=== PATIENT | male | born 1985 | race Two or more races ===

== ENCOUNTER 2024-04-26 05:20 | Emergency (ER) | payer BC, SELFPAY ==
[2024-04-26 05:21] VITALS: BMI 24.1
[2024-04-26 05:43] VITALS: BP 133/77; PULSE 88; RESP 18; TEMP 36.7; O2SAT 97
--- NOTE | 2024-04-26 05:51 | XR_ITS ---
Examination: CT brain head without contrast. 2-D sagittal coronal reconstructions Date and time of exam:April 26, 2024 at 0719 hrs. Indications: Onset headaches today CTDI: vol (mGy):50.1 DLP: (mGycm):1019 Technique: Multiple CT axial sections of the brain have been obtained, 5 mm slice thickness. Contrast has not been administered. 2-D sagittal, coronal reconstructions have been obtained Low dose protocols were performed. One or more of the following dose reduction techniques were used; automated exposure control, adjustment of the mA and/or KV according to patient size, use of iterative reconstruction technique. Findings: No significant ventricular enlargement. Intra-axial or extra-axial hemorrhage density is not seen. No mass effect or midline shift Basal cisterns are not remarkable. Fourth ventricle is midline. Cranial vault intact. Impression: Negative for acute hemorrhage, mass effect or midline shift Significant ethmoid frontal maxillary antral and sphenoid sinusitis Acute right maxillary sinusitis
--- NOTE | 2024-04-26 05:52 | PD.EDRME ---
Rapid Medical Screening Exam RME Arrival date/time: 04/26/24 05:20 39-year-old male past medical history of migraines presents emergency department complaining of headache that starts behind right ear and travels towards right eye that is been ongoing for several days. Chief Complaint: Headache Vital signs: Vital Signs Temperature 98.1 F 04/26/24 05:43 Pulse Rate 88 04/26/24 05:43 Respiratory Rate 18 04/26/24 05:43 Blood Pressure 133/77 H 04/26/24 05:43 Pulse Oximetry (%) 97 04/26/24 05:43 Oxygen Delivery Method Room Air 04/26/24 05:43 Vital signs reviewed by provider: Yes
[2024-04-26] MEDS: DiphenhydrAMINE 25 MG CAPSULE PO (05:58)
[2024-04-26] MEDS: HYDROcodone/APAP 5/325 TABLET 1 TAB PO (05:58)
[2024-04-26] MEDS: METOCLOPRAMIDE 5 MG TABLET 10 MG PO (05:59)
--- NOTE | 2024-04-26 07:59 | EDNOTE_ITS ---
ED Headache RME/HPI General Chief Complaint: Headache Stated Complaint: HEADACHE Time Seen by Provider: 04/26/24 06:14 Arrival date/time: 04/26/24 05:20 39-year-old male presents emergency department complaints of facial pain and headache patient report symptoms ongoing for last couple of days patient reports no fever nausea or vomiting Limitations: no limitations RME / HPI RME / HPI Narrative: 04/26/24 05:20 39-year-old male past medical history of migraines presents emergency department complaining of headache that starts behind right ear and travels towards right eye that is been ongoing for several days. Related Data Previous Rx's ?Medication ?Instructions ?Recorded amoxicillin 875 mg-potassium 1 tab PO BID 10 days #20 tabs 04/26/24 clavulanate 125 mg tablet hydrocodone 5 mg-acetaminophen 325 1 tab PO BID PRN pain #10 tabs 04/26/24 mg tablet Allergies Allergy/AdvReac Type Severity Reaction Status Date / Time ibuprofen [From Advil] Allergy Verified 04/26/24 05:58 No Known Allergies Allergy Unknown Uncoded 04/26/24 05:22 Review of Systems Review of Systems Systems Reviewed: All systems reviewed, normal except as documented Constitutional Constitutional: Reports system reviewed and no additional complaints, except as documented, Denies fever(s) and Reports headache(s) Eyes Eyes: Reports system reviewed and no additional complaints, except as documented and Denies blurry vision ENT Ears, Nose, Mouth, and Throat: Reports system reviewed and no additional complaints, except as documented, Reports headache(s), Reports nasal congestion, Reports nasal discharge, Reports sinus pain and Reports sinus pressure Cardiovascular Cardiovascular: Reports system reviewed and no additional complaints, except as documented, Denies chest pain and Denies dyspnea Respiratory Respiratory: Reports system reviewed and no additional complaints, except as documented, Denies chest congestion, Denies cough and Denies dyspnea Gastrointestinal Gastrointestinal: Reports system reviewed and no additional complaints, except as documented and Denies abdominal pain Integumentary/Breasts Skin/Breast: Reports system reviewed and no additional complaints, except as documented and Denies rash Neurologic Neurologic: Reports system reviewed and no additional complaints, except as documented, Reports as per HPI and Reports headache(s) Past Medical History Social History SMOKING STATUS: Never smoker ED Exam General Limitations: Present no limitations General appearance: Present alert and in no apparent distress Head Head exam: Present atraumatic, normocephalic and normal inspection Eye Eye exam: Present normal appearance, PERRL and EOMI ENT ENT exam: Present mucous membranes moist and other (Sinus pressure and pain) Neck Neck exam: Present normal inspection, full ROM and trachea midline Chest Chest inspection: Present normal inspection and symmetric chest wall rise Respiratory Respiratory exam: Present normal lung sounds bilaterally Cardiovascular Cardiovascular exam: Present regular rate, normal rhythm and normal heart sounds Abdominal Exam Abdominal exam: Present soft and normal bowel sounds Extremities Exam Extremities exam: Present normal inspection and full ROM Back Exam Back exam: Present normal inspection and full ROM Neurological Exam Neurological exam: Present alert, oriented X3, CN II-XII intact, normal gait and reflexes normal; Absent motor sensory deficit Psychiatric Psychiatric exam: Present normal affect and normal mood Skin Skin exam: Present warm, dry, intact and normal color Course Quality Measures none Orders Category Date Time Status CT head/brain wo con Stat Exams 04/26/24 05:51 Completed DiphenhydrAMINE [Benadryl] Med 04/26/24 05:51 Discontinued 25 mg PO X1 ONE HYDROcodone*/APAP 5/325 [[place] 5/325] Med 04/26/24 05:51 Discontinued 1 tab PO X1 ONE Metoclopramide [Reglan] Med 04/26/24 05:51 Discontinued 10 mg PO X1 ONE Vital Signs Vital signs: Vital Signs Temperature 98.1 F 04/26/24 05:43 Pulse Rate 88 04/26/24 05:43 Respiratory Rate 18 04/26/24 05:43 Blood Pressure 133/77 H 04/26/24 05:43 Pulse Oximetry (%) 97 04/26/24 05:43 Oxygen Delivery Method Room Air 04/26/24 05:43 O2 saturation 97% room air within normal limits Headache MDM Narrative MDM Narrative:: 39-year-old male presents emergency department complaints of facial pain and headache patient report symptoms ongoing for last couple of days patient reports no fever nausea or vomiting On exam patient well-appearing patient does not appear ill or toxic in no acute distress At time of my encounter patient is already received a CT scan and pain medication Patient reports pain medication has improved his symptoms CT scan consistent with sinusitis Patient be discharged home with [place] and antibiotics Patient discharged home in no distress to follow-up with primary care doctor in the next 24 to 48 hours and for any worsening symptoms to return to the ER immediately Patient data External records reviewed:: [facility] [place] previous records Clinical information provided by:: patient Social determinants that could affect healthcare access:: none Patient has the following chronic illnesses:: None How is presenting disease/condition affected by chronic disease/condition?: no chronic disease Evaluation data The following diagnostics were reviewed and interpreted by me:: radiology exam(s) Lab and/or radiology exams considered but not ordered:: Radiology obtain Interpretation Summary: Reviewed by me Medications / Prescriptions Medications or Prescriptions considered but not ordered:: Given Medication administrations:: Medication Administration History Discontinued Medications Hydrocodone Bitart/Acetaminophen (Hydrocodone/Apap 5/325 Tablet) 1 tab PO X1 ONE Stop: 04/26/24 05:52 Last Admin: 04/26/24 05:58 Dose: 1 tab Documented By: SHEA Diphenhydramine HCl (Diphenhydramine 25 Mg Capsule) 25 mg PO X1 ONE Stop: 04/26/24 05:52 Last Admin: 04/26/24 05:58 Dose: 25 mg Documented By: STONEL Metoclopramide HCl (Metoclopramide 5 Mg Tablet) 10 mg PO X1 ONE Stop: 04/26/24 05:52 Last Admin: 04/26/24 05:59 Dose: 10 mg Documented By: CVL Given Consultations Consultation(s) initiated? (list below): No Diagnosis Differential diagnosis headache: migraine and tension headache Most likely diagnosis given after review of the tests above:: Headache Admission Indicated Admission indicated?: not indicated Admission Request Was there a request for admission?: No Disposition Plan Disposition Plan: Discharge Discharge Attestation Discharge Attestation: The patient and all family members were given an opportunity to ask questions and understood the discharge instructions. Discharge instructions specifically effects, indications for sooner follow up or return to the emergency department, and the expected course of current diagnosis. Patient condition: Stable Discharge Plan Plan Patient Disposition: HOME (Self Care) Disposition Comment: Stable Prescriptions/Referrals Prescriptions/Med Rec: New hydrocodone-acetaminophen 5-325 mg tablet 1 tab PO BID MDD 10 PRN (Reason: pain) Qty: 10 0RF amoxicillin-pot clavulanate 875-125 mg tablet 1 tab PO BID 10 Days Qty: 20 0RF Referrals: Talib Piña MD [Primary Care Provider] - 04/27/24 Problem List Clinical Impression: Headache Patient/Caregiver Discharge Instructions Education Materials: Self-Care for Headaches Additional Instructions: Please follow up with your primary care doctor in the next 24-48hrs for any worsening symptoms return here immediately Print Language: Faroese Stand Alone Forms: Verito Award Info., Work/School Release, Patient Portal Info Letter PA/COLORING ROOM WORKER Supervising Physician PA/COLORING ROOM WORKER Supervising Physician: dr wolff
== END 2024-04-26 08:06 | disposition home or self-care (01) ==
PROVIDERS: Emergency Provider Emergency Medicine; PCP Family Medicine
DX: R51.9 Headache, unspecified (principal)
CPT/HCPCS: 70450; 99284; A9270

== ENCOUNTER 2024-06-30 12:20 | Day surgery (SDC) | payer BC, SELFPAY ==
[2024-06-28 06:53] VITALS: BMI 25.4
--- NOTE | 2024-06-28 07:00 | EKG_ITS ---
[facility] Test Date: 2024-06-28 Pat Name: THERESE CHAUDHARY Department: Room: - Gender: Male [employer] Associate: ROHINI : 1985 Requested By: Naga Mcnair Order Number: [id number] Reading MD: Naga Mcnair Measurements Intervals [place] Rate: 75 P: -1 IN: 132 QRS: 3 QRSD: 87 T: 9 QT: 341 QTc: 382 Interpretive Statements SINUS RHYTHM POSSIBLE RIGHT VENTRICULAR CONDUCTION DELAY No previous ECG available for comparison /[email or web address]/[id number]
[2024-06-30] VITALS (7 sets, daily range): BP systolic 112–144; BP diastolic 85–99; PULSE 75–101; RESP 12–20; TEMP 36.3–36.5; O2SAT 96–99; BMI 25.4
[2024-06-30] MEDS: OXYMETAZOLINE NAS SPRY 0.05% 15 ML BTL NASAL (13:33)
[2024-06-30] MEDS: RINGERS LACTATED 1000 ML 1,000 ML 20 ML IV (13:34)
--- NOTE | 2024-06-30 15:52 | ESOP_ITS ---
Date of Procedure 06/30/24 Pre Op Diagnosis Nasal septal deviation with obstruction Bilateral chronic pansinusitis Bilateral inferior turbinate hypertrophy Post Op Diagnosis Nasal septal deviation with obstruction Bilateral chronic pansinusitis Bilateral inferior turbinate hypertrophy Procedure Intranasal septoplasty Bilateral endoscopic frontal recess exploration Bilateral endoscopic total ethmoidectomies Bilateral endoscopic maxillary antrostomies Bilateral endoscopic sphenoidotomy Bilateral submucous resection of the inferior turbinates Findings Grade 3 nasal septal deviation to the left side, enlarged inferior turbinates, bilateral chronic ethmoid and maxillary sinusitis with polypoid changes. Procedure Description Indications: This is a 39-year-old male with chronic sinusitis and nasal congestion with the above findings. These were confirmed with CT scan. Treatment options were discussed including bleeding infection eye and brain injury. Potential need for further surgery as well. Nasal deformity was discussed as well. Patient understood this as well as anticipated outcomes and wished to proceed. Patient was transferred to the operative suite where he is anesthetized intubated and sterilely draped. A timeout was performed. The nasal septum as well as the uncinate processes bilaterally were injected with 1% lidocaine with 1 100,000 dilution epinephrine. Later the inferior turbinates were injected as well. Approximately 7 cc total were used. A caudal rim incision was made on the left side of the septum mucosal flap elevated off the septal cartilage and bone and inferior tunnel created. The perpendicular plate was from the quadrangular cartilage with a freer elevator and mucosal flap elevated off the right side of the septum. Double-action scissors was then used to incise the perpendicular plate and it was removed in a piecemeal fashion which remove most of the septal deviation. The mucosal flaps were later reapproximated to the underlying quadrangular cartilage with a 4-0 plain gut suture in a quilting type stitch and this was used to close the rim incision as well. Under endos copic visualization the left middle turbinate was medialized. The maxillary sinus was located with the curved suction and expanded with that. The sinus was suctioned and there was no purulence present. The curved suction was then switched over straight Castellanos. The ethmoid bulla was entered and then the anterior ethmoid cells and were removed with the wild forceps. Dissection was carried farther back with the through cut forceps. The curved suction was then used to locate and cannulate the frontal recess into the frontal sinus. Tissue was removed from overlying the frontal recess. Sphenoid sinus was then opened under endoscopic visualization with a straight Castellanos suction through the natural ostia. This was expanded with the suction. Neuro pledgets soaked with Afrin was then placed in the ethmoid sinus. Similar procedure was performed on the right side. With similar findings. Mucosa was thickened and polypoid in both middle meatuses as well as in the ethmoid sinuses. The maximal antrostomy was performed first on the right side followed by the total ethmoidectomy followed by the frontal recess exploration with removal of tissue and then the sphenoidotomy. Neuro pledget was then placed in this ethmoid sinus as well. Both inferior turbinates were reduced in a submucosal plane with 2.9 mm turbinate shaver blade. The entry sites were then cauterized with suction ca utery to control oozing. Neuro pledgets were removed and placed with Surgicel soaked in Afrin. Patient was then awakened and taken the recovery room in stable condition Anesthesia GETA Pathology / specimen Other (Left and right sinus contents primarily ethmoid sinus) Estimated Blood Loss 15 Surgeon Naga Ortiz DO Surgical Staff Operation Date: 06/30/24 15:45 <No data on this case meets the specified criteria>
--- NOTE | 2024-06-30 15:55 | SUR.PHASEI ---
pt received from OR in recovery bay 5. pt awake and alert, breathing unlabored on oxymask 8l, v/s stable. pt dressing to nasal area cdi. report received from Dr. Julien and Celio ALLEN.
--- NOTE | 2024-06-30 16:35 | SUR.PHASEII ---
pt able to tolerate oral fluids without difficulty swallowing or nausea/vomiting.
--- NOTE | 2024-06-30 17:02 | SUR.PHASEII ---
pt awake and alert, breathing unlabored on room air. v/s stable. pt dressing to nasal area scant blood noted, dressing changed. pt able to ambulate to wheelchair with steady gait. d/c instructions given with parents in room using washing machine striper Roberto Carlos Ricardo, all questions answered. pt d/c via wheelchair with all belongings.
== END 2024-06-30 17:02 | disposition home or self-care (01) ==
PROVIDERS: PCP Registered Nurse; Referring Provider Otolaryngology; Visit Provider Otolaryngology
PROC: (CPT 30520; principal; 2024-06-30 15:30)
DX: J34.2 Deviated nasal septum (principal); J34.3 Hypertrophy of nasal turbinates; J32.4 Chronic pansinusitis; Z01.810 Encounter for preprocedural cardiovascular examination
CPT/HCPCS: 30520; 30140; 31276; 31256; 31257; 93005; A4217; A4649; C1763; J0690; J1100; J1885; J2250; J2405; J2704; J3010; J3490; J7040; J7120